=== PATIENT | male | born 1985 | race Caucasian/White ===

== ENCOUNTER 2017-11-02 01:53 | Emergency (ER) | payer SELFPAY ==
[~2017-11-02] VITALS: Ht 185.4 cm; Wt 155.0 kg
[~2017-11-02 01:53] MED LIST: CLON1TAB PO; LEVE500 PO
[2017-11-02 01:57] VITALS: BP 137/92; PULSE 122; RESP 16; TEMP 98.4; O2SAT 98
[2017-11-02] MEDS ORDERED: CARB200T PO (02:03)
--- NOTE | 2017-11-02 03:53 | PD ---
HPI Chief Complaint: Abdominal Pain Time Seen by Provider: 03:52 Travel History International Travel<30 days: No Contact w/Intl Traveler<30days: No Traveled to known affect area: No History of Present Illness HPI The patient is a 32 year old male who presents to the [facility] emergency department with a history of abdominal pain that has been coming and going for 2 months. He was in rehab up until yesterday evening, and they would not let him out to go the ER for evaluation. He reports that he's been in rehabilitation for the last 60 days. The pain is a stabbing pain in the right upper quadrant of the abdomen that radiates around to his back. He reports that Tylenol and Ibuprofen makes it worse. He was in rehab for heroin use. He was discharged from rehab yesterday. He had Hepatitis C and was treated with Harvoni 6 months ago. The pain sometimes causes him to vomit and have diarrhea. He has vomiting and diarrhea every other day. He has had a subjective fever. On review of systems otherwise, the patient denies having any cough or congestion neck pain, chest pain, shortness of breath,urinary symptoms, or neurologic symptoms. [facility] Past Medical History Narrative Medical The patient's past medical history is significant for anxiety, [place] related to cocaine use, heroin use, seizure disorder, Hepatitis C s/p treatment. Hx Anticoagulant Therapy: No Anxiety: Yes Cardiovascular Problems: Yes ([place]) Chemotherapy: No Cerebrovascular Accident: No Diabetes: No Diminished Hearing: No Neurologic: Yes (Dx: Epilepsy age 6 per pt.) Respiratory: Yes ([place]) Immunizations Current: No Myocardial Infarction: Yes Seizures: Yes (Last seizure was 03/05/16 per pt.) Tetanus Vaccination: Unknown Influenza Vaccination: No Past Surgical History Narrative Surgical The patient's past surgical history is significant for cholecystectomy. Cholecystectomy: Yes Social History Alcohol Use: Yes (Once in awhile per pt.) Tobacco Use: No Substance Use: No Allergies-Medications (Allergen,Severity, Reaction): Coded Allergies: haloperidol (Unverified Allergy, Severe, 11/02/17) Per pt. ziprasidone (Unverified Allergy, Severe, 11/02/17) Per pt. phenytoin (Unverified Allergy, Unknown, 11/02/17) Per pt. prochlorperazine (Unverified Allergy, Unknown, 11/02/17) Per pt. Reported Meds & Prescriptions Reported Meds & Active Scripts Active Reported Carbamazepine 200 Mg Tab 200 Mg PO BID Review of Systems Except as stated in HPI: all other systems reviewed are Neg General / Constitutional: No: Fever Eyes: No: Visual changes HENT: No: Headaches Cardiovascular: No: Chest Pain or Discomfort Respiratory: No: Shortness of Breath Gastrointestinal: Positive: Nausea, Vomiting, Diarrhea, Abdominal Pain, Changes in Bowel Habits, Indigestion, No: Hematemesis, Hematochezia, Loss of Appetite Genitourinary: No: Dysuria Musculoskeletal: No: Pain Skin: No Rash Neurologic: No: Weakness Psychiatric: No: Depression Endocrine: No: Polydipsia Hematologic/Lymphatic: No: Easy Bruising Physical Exam Narrative General: The patient is a well-developed well-nourished male in no acute distress Head and Neck exam: Head is normocephalic atraumatic. Eyes: EOMI, pupils are equal round and reactive to light. Nose: Midline septum with pink mucous membranes Mouth: Dentition unremarkable. Moist mucus membranes. Posterior oropharynx is not erythematous. No tonsillar hypertrophy. Uvula midline. Airway patent. Neck: No palpable lymphadenopathy. No nuchal rigidity. No thyromegaly. Cardiovascular: Regular rate and rhythm without murmurs, gallops, or rubs. Lungs: Clear to auscultation bilaterally. No wheezes, rhonchi, or rales. Abdomen: Soft, tenderness reported on palpation of the right upper quadrant of the abdomen, no other tenderness on palpation of the other quadrants of the abdomen. No guarding, rebound, or rigidity. Negative Koehler's sign. No tenderness on palpation of McBurney's point. Extremities: No clubbing, cyanosis, or edema. 2+ pulses in all 4 extremities. No calf tenderness on palpation. Back: No spinous process tenderness to palpation. Bilateral CVA tenderness reported on palpation. Neurologic Exam: Grossly nonfocal. Skin Exam: No rash noted. Intact skin that is warm and dry. Data Data Last Documented VS Vital Signs Date Time Temp Pulse Resp B/P (MAP) Pulse Ox O2 Delivery O2 Flow Rate FiO2 11/02/17 04:56 98.5 68 16 127/63 (84) 98 11/02/17 04:04 Room Air Orders Orders Complete Blood Count With Diff (11/02/17 03:54) Comprehensive Metabolic Panel (11/02/17 03:54) C-Reactive Protein (Crp) (11/02/17 03:54) Lipase (11/02/17 03:54) Urinalysis - C+S If Indicated (11/02/17 03:54) Magnesium (Mg) (11/02/17 03:54) Ct Abd/Pel W Iv Contrast(Rout) (11/02/17 03:54) Iv Access Insert/Monitor (11/02/17 03:54) Ecg Monitoring (11/02/17 03:54) Oximetry (11/02/17 03:54) Iohexol 350 Inj (Omnipaque 350 Inj) (11/02/17 05:44) Ed Discharge Order (11/02/17 06:28) Labs Laboratory Tests Test 11/02/17 04:00 White Blood Count 13.5 TH/MM3 Red Blood Count 5.01 MIL/MM3 Hemoglobin 15.1 GM/DL Hematocrit 44.2 % Mean Corpuscular Volume 88.2 FL Mean Corpuscular Hemoglobin 30.1 PG Mean Corpuscular Hemoglobin Concent 34.1 % Red Cell Distribution Width 13.5 % Platelet Count 259 TH/MM3 Mean Platelet Volume 9.6 FL Neutrophils (%) (Auto) 72.9 % Lymphocytes (%) (Auto) 17.6 % Monocytes (%) (Auto) 8.2 % Eosinophils (%) (Auto) 0.9 % Basophils (%) (Auto) 0.4 % Neutrophils # (Auto) 9.9 TH/MM3 Lymphocytes # (Auto) 2.4 TH/MM3 Monocytes # (Auto) 1.1 TH/MM3 Eosinophils # (Auto) 0.1 TH/MM3 Basophils # (Auto) 0.1 TH/MM3 CBC Comment DIFF FINAL Differential Comment Urine Color YELLOW Urine Turbidity CLEAR Urine pH 7.0 Urine Specific [place] 1.012 Urine Protein NEG mg/dL Urine Glucose (UA) NEG mg/dL Urine Ketones NEG mg/dL Urine Occult Blood NEG Urine Nitrite NEG Urine Bilirubin NEG Urine Urobilinogen LESS THAN 2.0 MG/DL Urine Leukocyte Esterase NEG Urine RBC LESS THAN 1 /hpf Urine WBC 2 /hpf Microscopic Urinalysis Comment CULT NOT INDICATED Blood Urea Nitrogen 13 MG/DL Creatinine 0.91 MG/DL Random Glucose 87 MG/DL Total Protein 7.7 GM/DL Albumin 3.8 GM/DL Calcium Level 8.8 MG/DL Magnesium Level 2.1 MG/DL Alkaline Phosphatase 99 U/L Aspartate Amino Transf (AST/SGOT) 14 U/L Alanine Aminotransferase (ALT/SGPT) 22 U/L Total Bilirubin 0.2 MG/DL Sodium Level 141 MEQ/L Potassium Level 3.8 MEQ/L Chloride Level 108 MEQ/L Carbon Dioxide Level 27.3 MEQ/L Anion Gap 6 MEQ/L Estimat Glomerular Filtration Rate 97 ML/MIN C-Reactive Protein 0.72 MG/DL Lipase 131 U/L [facility] Medical Decision Making Medical Screen Exam Complete: Yes Emergency Medical Condition: Yes Medical Record Reviewed: Yes Interpretation(s) Last Impressions Abdomen/Pelvis CT 11/02/17 0354 Signed Impressions: Service Date/Time: Thursday, November 02, 2017 05:29 - CONCLUSION: 1. Unremarkable bowel gas pattern 2. Status post cholecystectomy. Robbie Price MD Differential Diagnosis Hepatitis, versus choledocholithiasis, versus musculoskeletal strain, versus colitis, versus gastroenteritis, versus kidney stone, versus pyelonephritis Narrative Course During the course of the patients emergency department visit, the patients history, examination, and differential diagnosis were reviewed with the patient. The patient was placed on a cardiac cath tech with oximetry and frequent blood pressure monitoring. The patient had IV access obtained and blood work sent for analysis. A CT scan of the abdomen and pelvis was ordered. The patients laboratory studies were reviewed and remarkable for a white count of 13.5, hemoglobin 15.1, platelets 259 with 72.9 neutrophils. CMP is remarkable for chloride of 108, AST 14, C-reactive protein 0.72, lipase 131, urinalysis is unremarkable. Radiology studies were reviewed and remarkable for a CT scan of the abdomen and pelvis that shows an unremarkable bowel gas pattern, status post cholecystectomy , no other acute abnormality. The patient will be discharged home to follow-up with a primary care physician. The patient reports that he does not have a local physician, therefore he is given the name of the [facility] for follow-up. The patient will be given a prescription for Bentyl for abdominal cramping and Zofran for nausea. The patient is resting comfortably and feels better, is alert and in no distress. The patients results and examination findings were discussed with the patient. The repeat examination is unremarkable and benign. The history, exam, diagnostic testing, and current condition do not suggest any significant pathology to warrant further testing, continued ED treatment, admission, or surgical evaluation at this point. The vital signs have been stable. The patient does not have uncontrollable pain, intractable vomiting, or other significant symptoms. The patient's condition is stable and appropriate for discharge. The patient will pursue further outpatient evaluation with a primary care physician or other designated or consulting physician as indicated in the discharge instructions. The patient expressed understanding and was agreeable with this plan. Diagnosis Primary Impression: Abdominal pain Qualified Codes: R10.11 - Right upper quadrant pain Additional Impression: Nausea, vomiting, and diarrhea Referrals: [facility] 3 days Patient Instructions: Abdominal Pain (ED), Acute Diarrhea (ED), Acute Nausea and Vomiting (ED), General Instructions Med/Other Pt SpecificInfo: Prescription(s) given Scripts Ondansetron Odt (Zofran Odt) 4 Mg Tab 4 MG SL Q6HR Y for Nausea/Vomiting, #7 TAB 0 Refills Prov: Dayami Agee MD 11/02/17 Dicyclomine (Bentyl) 10 Mg Cap 10 MG PO TID Y for CRAMPS, #12 CAP 0 Refills Prov: Dayami Agee MD 11/02/17 Disposition: 01 DISCHARGE HOME Condition: Stable Dayami Agee MD Nov 02, 2017 03:53
[2017-11-02 04:04] VITALS: O2SAT 99
[2017-11-02 04:14] LABS: BLOOD, URINE NEG (NEG); GLUCOSE,URINE NEG (NEG); KETONE, URINE NEG (NEG); NITRITE,URINE NEG (NEG); URINE COLOR YELLOW (YELLW/STRAW)
[2017-11-02 04:19] LABS: COMMENT (UR) CULT NOT INDICATED; CULTURE IF INDICATED CULT NOT INDICATED
[2017-11-02 04:24] LABS: AUTOMATED NEUTROPHIL # 9.9 TH/MM3 (1.8-7.7); BASOPHIL # 0.1 TH/MM3 (0-0.2); BASOPHIL % 0.4 % (0.0-2.0); EOSINOPHIL # 0.1 TH/MM3 (0-0.4); EOSINOPHIL % 0.9 % (0.0-4.0); HEMATOCRIT 44.2 % (39.0-51.0); HEMO FLAGS DIFF FINAL; LYMPH % 17.6 % (9.0-44.0); LYMPHOCYTE # 2.4 TH/MM3 (1.0-4.8); MEAN CELL VOLUME 88.2 FL (80.0-100.0); MEAN CORPUSCULAR HEMOGLOBIN 30.1 PG (27.0-34.0); MEAN CORPUSCULAR HGB CONC 34.1 % (32.0-36.0); MONO % 8.2 % (0.0-8.0); NEUT % 72.9 % (16.0-70.0); PLATELET COUNT 259 TH/MM3 (150-450); RED BLOOD COUNT 5.01 MIL/MM3 (4.50-5.90); RED CELL DISTRIBUTION WIDTH 13.5 % (11.6-17.2); WHITE BLOOD COUNT 13.5 TH/MM3 (4.0-11.0)
[2017-11-02 04:37] LABS: ALT (GPT) 22 U/L (12-78); ANION GAP 6 MEQ/L (5-15); AST (GOT) 14 U/L (15-37); BICARBONATE 27.3 MEQ/L (21.0-32.0); BLOOD UREA NITROGEN 13 MG/DL (7-18); CHLORIDE 108 MEQ/L (98-107); GLOMERULAR FILTRATION RATE 97 ML/MIN (>89); MAGNESIUM 2.1 MG/DL (1.5-2.5); POTASSIUM 3.8 MEQ/L (3.5-5.1); SODIUM (NA) 141 MEQ/L (136-145)
[2017-11-02 04:39] LABS: ALKALINE PHOSPHATASE 99 U/L (45-117); TOTAL BILIRUBIN ADULT 0.2 MG/DL (0.2-1.0)
[2017-11-02 04:56] VITALS: BP 127/63; PULSE 68; RESP 16; TEMP 98.5; O2SAT 98
[2017-11-02] MEDS ORDERED: IOHEXOL 350 MG/ML 10 ML VIAL (for RAD DIAG) IVCONTRAST ONE (05:44)
--- NOTE | 2017-11-02 05:56 | RADRPT ---
EXAM DATE/TIME: 11/02/2017 05:29 [place] COMPARISON: No previous studies available for comparison. INDICATIONS : Abdomen pain. IV CONTRAST: 90 cc Omnipaque 350 (iohexol) IV ORAL CONTRAST: No oral contrast ingested. RADIATION DOSE: 31.57 CTDIvol (mGy) ; Patient body habitus MEDICAL HISTORY : Cardiovascular disease. Seizures. SURGICAL HISTORY : Cholecystectomy. ENCOUNTER: Initial ACUITY: 1 day PAIN SCALE: 5/10 LOCATION: Bilateral abdomen TECHNIQUE: Volumetric scanning of the abdomen and pelvis was performed. Using automated exposure control and ad justment of the mA and/or kV according to patient size, radiation dose was kept as low as reasonably achievable to obtain optimal diagnostic quality images. DICOM format image data is available electro nically for review and comparison. FINDINGS: LOWER LUNGS: The visualized lower lungs are clear. LIVER: Homogeneous density without lesion. There is no dilation of the biliary tree. Status post cholecyste ctomy. SPLEEN: Normal size without lesion. PANCREAS: Within normal limits. KIDNEYS: Normal in size and shape. There is no mass, stone or hydronephrosis. ADRENAL GLANDS: Within normal limits. VASCULAR: There is no aortic aneurysm. BOWEL/MESENTERY: The stomach, small bowel, and colon demonstrate no acute abnormality. There is no free intraperitone al air or fluid. ABDOMINAL WALL: Within normal limits. RETROPERITONEUM: There is no lymphadenopathy. BLADDER: No wall thickening or mass. REPRODUCTIVE: Within normal limits. INGUINAL: There is no lymphadenopathy or hernia. MUSCULOSKELETAL: Within normal limits for patient age. CONCLUSION: 1. Unremarkable bowel gas pattern 2. Status post cholecystectomy. Robbie Price MD on November 02, 2017 at 5:53 Board Certified Radiologist. This report was verified electronically.
[2017-11-02] MEDS ORDERED: DICY10 PO (06:35)
[2017-11-02] MEDS ORDERED: ZOFR4TAB3 SL (06:35)
== END 2017-11-02 06:43 | disposition home or self-care (01) ==
LOC: NEPC 01:53
DX: R10.11 Right upper quadrant pain (principal); R11.2 Nausea with vomiting, unspecified; R19.7 Diarrhea, unspecified; F41.9 Anxiety disorder, unspecified; G40.909 Epilepsy, unspecified, not intractable, without status epilepticus; I25.2 Old myocardial infarction; Z79.899 Other long term (current) drug therapy
CPT/HCPCS: 74177; 80053; 81001; 83690; 83735; 85025; 86140; 99285; Q9967

== ENCOUNTER 2017-11-20 09:25 | Emergency (ER) | payer SELFPAY ==
[~2017-11-20] VITALS: Ht 185.4 cm; Wt 154.0 kg
[~2017-11-20 09:25] MED LIST changes: +CARB200T PO; -CLON1TAB PO; +DICY10 PO; -LEVE500 PO; +ZOFR4TAB3 SL
[2017-11-20 09:27] VITALS: BP 171/105; PULSE 103; RESP 16; TEMP 98.4; O2SAT 96
--- NOTE | 2017-11-20 10:25 | PD ---
HPI Chief Complaint: Oral / Dental Pain or Problem Time Seen by Provider: 10:12 Travel History International Travel<30 days: No Contact w/Intl Traveler<30days: No Traveled to known affect area: No History of Present Illness HPI 32-year-old male presents to emergency department complaining of left lower tooth and jaw pain since yesterday. Patient states that the pain radiates to his jaw and neck and described as throbbing with occasional sharp sensation. Patient says that the pain is moderate to severe. Patient also states that he is also had increased fatigue since the onset. Patient denies fever or chills. States that the pain worsens with palpation of the jaw and neck. States he has been taking Tylenol and Motrin with some relief of his pain. Patient has a history of epilepsy but does not take medication for this. States he was previously taking Tegretol but states that he did not like the feeling it gave him. Patient then states that he has been evaluated for TMJ and treated but this has not helped his pain. Patient has not seen his dentist regarding this pain. PFSH Past Medical History Hx Anticoagulant Therapy: No Anxiety: Yes Cardiovascular Problems: Yes ([place]) Chemotherapy: No Cerebrovascular Accident: No Diabetes: No Diminished Hearing: No Neurologic: Yes (Dx: Epilepsy age 6 per pt.) Respiratory: Yes ([place]) Immunizations Current: No Myocardial Infarction: Yes Seizures: Yes (Last seizure was 03/05/16 per pt.) Past Surgical History Cholecystectomy: Yes Social History Alcohol Use: Yes (Once in awhile per pt.) Tobacco Use: No Substance Use: No Allergies-Medications (Allergen,Severity, Reaction): Coded Allergies: haloperidol (Unverified Allergy, Severe, 11/20/17) Per pt. ziprasidone (Unverified Allergy, Severe, 11/20/17) Per pt. phenytoin (Unverified Allergy, Unknown, 11/20/17) Per pt. prochlorperazine (Unverified Allergy, Unknown, 11/20/17) Per pt. Reported Meds & Prescriptions Reported Meds & Active Scripts Active Amoxicillin 500 Mg Cap 500 Mg PO TID 10 Days Reported Carbamazepine 200 Mg Tab 200 Mg PO BID Review of Systems Except as stated in HPI: all other systems reviewed are Neg Physical Exam Narrative GENERAL: Well-developed well-nourished distress SKIN: Focused skin assessment warm/dry. HEAD: Atraumatic. Normocephalic. EYES: Pupils equal and round. No scleral icterus. No injection or drainage. ENT: No nasal bleeding or discharge. Mucous membranes pink and moist. Bilateral tympanic membranes-noninjected, non-bulging. Intact TTP to posterior aspect of left jaw buccal aspect.No clicking or pops. NECK: Trachea midline. No JVD. Tenderness palpation of the left anterior cervical lymph nodes. CARDIOVASCULAR: Regular rate and rhythm. No murmur appreciated. RESPIRATORY: No accessory muscle use. Clear to auscultation. Breath sounds equal bilaterally. MUSCULOSKELETAL: No obvious deformities. No clubbing. No cyanosis. No edema. NEUROLOGICAL: Awake and alert. No obvious cranial nerve deficits. Motor grossly within normal limits. Normal speech. PSYCHIATRIC: Appropriate mood and affect; insight and judgment normal. Data Data Last Documented VS Vital Signs Date Time Temp Pulse Resp B/P (MAP) Pulse Ox O2 Delivery O2 Flow Rate FiO2 11/20/17 10:45 99 11/20/17 09:27 98.4 103 16 Orders Orders Ed Discharge Order (11/20/17 10:27) [facility] Medical Decision Making Medical Screen Exam Complete: Yes Emergency Medical Condition: Yes Differential Diagnosis TMJ, trigeminal neuralgia, dental infection Narrative Course 32-year-old male presents to emergency department complaining of left lower tooth and jaw pain since yesterday. Patient states that the pain radiates to his jaw and neck and described as throbbing with occasional sharp sensation. Patient says that the pain is moderate to severe. Patient also states that he is also had increased fatigue since the onset. Patient denies fever or chills. States that the pain worsens with palpation of the jaw and neck. States he has been taking Tylenol and Motrin with some relief of his pain. Patient has a history of epilepsy but does not take medication for this. States he was previously taking Tegretol but states that he did not like the feeling it gave him. Patient then states that he has been evaluated for TMJ and treated but this has not helped his pain. Vital signs stable Physical exam findings consistent with TMJ versus dental infection. No clicking or popping of the jaw. Tender palpation without fluctuance of the left lower gingiva Patient initially stated that he had not seen a physician or specialist regarding this problem. After further questioning and evaluation patient states that he was preceded diagnosed with TMJ for this problem. He was unable tell me if he received medication for his pain. He states that he feels this is a dental infection because whenever he has infection he feels the same way. Patient will be discharged with amoxicillin. Advised to follow-up with a dentist and as a health for further treatment and evaluation. Advised patient to follow-up with neurologist for his epilepsy. Return to the emergency department for worsening or persistent symptoms. Diagnosis Primary Impression: Dental infection Referrals: [facility] Dentist Patient Instructions: Dental Abscess (ED), General Instructions Additional Instructions: Follow up with your primary care physician within 2-3 days. If your symptoms persist or worsen, return to the emergency department. Scripts Amoxicillin (Amoxicillin) 500 Mg Cap 500 MG PO TID for Infection for 10 Days, CAP 0 Refills Prov: Page Jon MD 11/20/17 Disposition: 01 DISCHARGE HOME Condition: Stable Annalisa Adler Nov 20, 2017 10:25
[2017-11-20] MEDS ORDERED: AMOX500C PO (10:26)
== END 2017-11-20 10:45 | disposition home or self-care (01) ==
LOC: NEPD 09:25
DX: K04.7 Periapical abscess without sinus (principal); R53.83 Other fatigue; G40.909 Epilepsy, unspecified, not intractable, without status epilepticus; F41.9 Anxiety disorder, unspecified; I25.2 Old myocardial infarction; Z79.899 Other long term (current) drug therapy; Z88.8 Allergy status to other drugs, medicaments and biological substances
CPT/HCPCS: 99283

== ENCOUNTER 2017-12-19 07:32 | Emergency (ER) | payer SELFPAY ==
[2017-12-19] MEDS: IBUPROFEN 800 MG TAB PO (07:58)
[2017-12-19] MEDS: ACETAMINOPHEN 325 MG TAB PO (07:59)
[2017-12-19] MEDS: PENICILLIN V POTASSIUM 500 MG TAB PO (07:59)
== END 2017-12-19 08:15 | disposition home or self-care (01) ==
LOC: NEPD 07:32
DX: K04.7 Periapical abscess without sinus (principal); F41.9 Anxiety disorder, unspecified; G40.909 Epilepsy, unspecified, not intractable, without status epilepticus; I25.2 Old myocardial infarction; Z88.8 Allergy status to other drugs, medicaments and biological substances
CPT/HCPCS: 99283

== ENCOUNTER 2017-12-20 21:43 | Emergency (ER) | payer SELFPAY ==
[2017-12-21] MEDS: CLINDAMYCIN PHOS 600 MG/4 ML VIAL IM (01:20)
[2017-12-21] MEDS: ONDANSETRON ODT 4 MG TAB PO (01:20)
== END 2017-12-21 01:29 | disposition home or self-care (01) ==
LOC: NEPD 21:43
DX: K04.7 Periapical abscess without sinus (principal)
CPT/HCPCS: 99283

== ENCOUNTER 2018-02-02 02:01 | Emergency (ER) | payer SELFPAY ==
[~2018-02-02] VITALS: Ht 185.4 cm; Wt 159.0 kg
[~2018-02-02 02:01] MED LIST changes: -CARB200T PO; -DICY10 PO; +IBUP1TAB7 PO; +MAPA500T13 PO; +PENI500T PO
[2018-02-02 02:15] VITALS: BP 134/76; PULSE 90; RESP 18; TEMP 98.8; O2SAT 98
--- NOTE | 2018-02-02 03:41 | PD ---
HPI Chief Complaint: Numbness/Tingling Time Seen by Provider: 03:19 Travel History International Travel<30 days: No Contact w/Intl Traveler<30days: No Traveled to known affect area: No History of Present Illness HPI The patient is a 32 year old male who presents to the [facility] emergency department with a history of right hand numbness and pain that he reports began 2 weeks ago. He reports over 2 days at the pain seemed to marked up his right arm. He reports that since then it has been numb and painful. He reports that it is so painful at times a it causes him to have a sharp chest pain and feels short of breath. The patient reports that this evening while working he developed the same kind of numbness and pain in bilateral feet. It caused him to fall to his knees at work. He denies injuring himself. He reports that he has also had a headache for the last 2 days that is like a band around the top of his head. When asked if he is taking anything for pain he reports that he is taking heroin. He reports that he snorts heroine recreationally. The patient also reports using cocaine. The patient reports a prior history of myocardial infarction induced by drug use approximately 2 years ago. He denies having any chest pain or shortness of breath currently. He denies having any lower extremity edema, calf pain, or erythema. He denies having any known recent fevers, cough or congestion. He denies having any abdominal pain. He denies having any nausea or vomiting. He reports that over the last 3 days he has been having diarrhea approximately every 2-3 hours. He reports that his stool is yellow in color. Otherwise on review of systems he denies having urinary symptoms, one-sided weakness, slurred speech, facial droop, or difficulty with word finding ability. 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 Hx Anticoagulant Therapy: No Anxiety: Yes Cardiovascular Problems: Yes ([place] DRUG RELATED) Chemotherapy: No Cerebrovascular Accident: No Diabetes: No Diminished Hearing: No Neurologic: Yes (Dx: Epilepsy age 6 per pt.) Respiratory: Yes Immunizations Current: Yes Myocardial Infarction: Yes (COCAINE RELATED) Seizures: Yes (Last seizure was12/15/17) Past Surgical History Narrative Surgical The patient's past surgical history is significant for cholecystectomy. Cholecystectomy: Yes Other Surgery: Yes (METAL REMOVED FROM BRAIN) Social History Alcohol Use: Yes (OCC) Tobacco Use: Yes (1PPD) Substance Use: Yes (HEROIN 02/01/18, cocaine) Allergies-Medications (Allergen,Severity, Reaction): Coded Allergies: haloperidol (Unverified Allergy, Severe, 02/02/18) Per pt. ziprasidone (Unverified Allergy, Severe, 02/02/18) Per pt. phenytoin (Unverified Allergy, Unknown, 02/02/18) Per pt. prochlorperazine (Unverified Allergy, Unknown, 02/02/18) Per pt. Reported Meds & Prescriptions Reported Meds & Active Scripts Active Zofran Odt (Ondansetron Odt) 4 Mg Tab 4 Mg SL Q6HR PRN Mapap Extra Strength (Acetaminophen) 500 Mg Tab 1,000 Mg PO Q6HR PRN Ibuprofen 800 Mg Tab 800 Mg PO Q8H PRN Penicillin V Potassium 500 Mg Tab 500 Mg PO Q6H 10 Days Review of Systems Except as stated in HPI: all other systems reviewed are Neg General / Constitutional: No: Fever Eyes: No: Visual changes HENT: Positive: Headaches, Neck Pain, No: Neck Stiffness Cardiovascular: Positive: Chest Pain or Discomfort Respiratory: Positive: Shortness of Breath Gastrointestinal: Positive: Diarrhea, Changes in Bowel Habits, No: Nausea, Vomiting, Abdominal Pain, Indigestion, Loss of Appetite Genitourinary: No: Dysuria Musculoskeletal: No: Pain Skin: No Rash Neurologic: Positive: Paresthesia, Sensory Disturbance, No: Weakness, Focal Abnormalities, Change in Mentation, Slurred Speech Psychiatric: No: Depression Endocrine: No: Polydipsia Hematologic/Lymphatic: No: Easy Bruising Physical Exam Narrative General: The patient is a well-developed well-nourished male in no acute distress. Head and Neck exam: Head is normocephalic atraumatic. Eyes: EOMI, pupils are equal round and reactive to light. Nose: Midline septum with pink mucous membranes Mouth: Dentition unremarkable. Moist mucus membranes. Posterior oropharynx is not erythematous. No tonsillar hypertrophy. Uvula midline. Airway patent. Neck: No palpable lymphadenopathy. No nuchal rigidity. No thyromegaly. Cardiovascular: Regular rate and rhythm without murmurs, gallops, or rubs. No pulse deficit to the extremities on simultaneous auscultation and palpation of his radial artery. Lungs: Clear to auscultation bilaterally. No wheezes, rhonchi, or rales. Abdomen: Soft, without tenderness to palpation in all 4 quadrants of the abdomen. No guarding, rebound, or rigidity. Normal bowel sounds are audible. No tenderness on palpation of McBurney's point. Negative Koehler sign. Extremities: No clubbing, cyanosis, or edema. 2+ pulses in all 4 extremities. No calf tenderness on palpation. Back: No spinous process tenderness to palpation. No costovertebral angle tenderness to palpation. Neurologic Exam: Cranial nerves 2-12 were intact on exam. Strength is 5/5 in all 4 extremities. No discernible sensory deficits noted, however he reports having tingling/ burning sensations to his right hand, bilateral feet. Skin Exam: No rash noted. Intact skin that is warm and dry. Data Data Last Documented VS Vital Signs Date Time Temp Pulse Resp B/P (MAP) Pulse Ox O2 Delivery O2 Flow Rate FiO2 02/02/18 03:55 99 02/02/18 02:15 98.8 90 18 134/76 (95) Orders Orders Electrocardiogram (02/02/18 ) Electrocardiogram (02/02/18 03:31) Complete Blood Count With Diff (02/02/18 03:31) Comprehensive Metabolic Panel (02/02/18 03:31) Creatine Kinase (Cpk) (02/02/18 03:31) Ckmb (Isoenzyme) Profile (02/02/18 03:31) Troponin I (02/02/18 03:31) B-Type Natriuretic Peptide (02/02/18 03:31) Prothrombin Time / Inr (Pt) (02/02/18 03:31) Act Partial Throm Time (Ptt) (02/02/18 03:31) Lipase (02/02/18 03:31) Urinalysis - C+S If Indicated (02/02/18 03:31) Westergren Sedimentation Rate (02/02/18 03:31) Magnesium (Mg) (02/02/18 03:31) Thyroid Stimulating Hormone (02/02/18 03:31) Chest, Single Ap (02/02/18 03:31) Ct Brain W/O Iv Contrast(Rout) (02/02/18 03:31) Iv Access Insert/Monitor (02/02/18 03:31) Ecg Monitoring (02/02/18 03:31) Oximetry (02/02/18 03:31) Ct Cerv Spine W/O Contrast (02/02/18 ) Sodium Chlor 0.9% 1000 Ml Inj (Ns 1000 M (02/02/18 03:45) Aspirin Chew (Aspirin Chew) (02/02/18 03:45) CKMB (02/02/18 03:52) CKMB% (02/02/18 03:52) Labs Laboratory Tests Test 02/02/18 03:52 White Blood Count 9.6 TH/MM3 Red Blood Count 4.67 MIL/MM3 Hemoglobin 14.0 GM/DL Hematocrit 40.4 % Mean Corpuscular Volume 86.5 FL Mean Corpuscular Hemoglobin 29.9 PG Mean Corpuscular Hemoglobin Concent 34.6 % Red Cell Distribution Width 13.4 % Platelet Count 230 TH/MM3 Mean Platelet Volume 8.6 FL Neutrophils (%) (Auto) 60.2 % Lymphocytes (%) (Auto) 27.0 % Monocytes (%) (Auto) 9.3 % Eosinophils (%) (Auto) 3.0 % Basophils (%) (Auto) 0.5 % Neutrophils # (Auto) 5.8 TH/MM3 Lymphocytes # (Auto) 2.6 TH/MM3 Monocytes # (Auto) 0.9 TH/MM3 Eosinophils # (Auto) 0.3 TH/MM3 Basophils # (Auto) 0.0 TH/MM3 CBC Comment DIFF FINAL Differential Comment Erythrocyte Sedimentation Rate 5 mm/hr Prothrombin Time 10.7 SEC Prothromb Time International Ratio 1.1 RATIO Activated Partial Thromboplast Time 29.4 SEC Blood Urea Nitrogen 15 MG/DL Creatinine 0.80 MG/DL Random Glucose 92 MG/DL Total Protein 6.8 GM/DL Albumin 3.4 GM/DL Calcium Level 8.3 MG/DL Magnesium Level 2.0 MG/DL Alkaline Phosphatase 81 U/L Aspartate Amino Transf (AST/SGOT) 15 U/L Alanine Aminotransferase (ALT/SGPT) 22 U/L Total Bilirubin 0.5 MG/DL Sodium Level 139 MEQ/L Potassium Level 3.5 MEQ/L Chloride Level 107 MEQ/L Carbon Dioxide Level 23.8 MEQ/L Anion Gap 8 MEQ/L Estimat Glomerular Filtration Rate 113 ML/MIN Total Creatine Kinase 115 U/L Creatine Kinase MB 1.6 NG/ML Troponin I LESS THAN 0.02 NG/ML B-Type Natriuretic Peptide 7 PG/ML Lipase 103 U/L Thyroid Stimulating Hormone 3rd Gen 0.713 uIU/ML MDM Medical Decision Making Medical Screen Exam Complete: Yes Emergency Medical Condition: Yes Medical Record Reviewed: Yes Differential Diagnosis Radiculopathy, versus peripheral neuropathy, versus electrolyte derangements, versus malingering, versus somatization, versus drug-seeking, versus intracranial abnormal, versus endocarditis Narrative Course During the course of the patient's emergency department visit, the patient's history, examination, and differential diagnosis were reviewed with the patient. The patient was placed on a cardiac rehab nurse with oximetry and frequent blood pressure monitoring. The patient had IV access obtained and blood work sent for analysis. The patient was initially provided normal saline 1 L IV fluid bolus, aspirin 324 mg p.o. 1. The patient's laboratory studies were reviewed and remarkable for a white count of 9.6, hemoglobin 14, platelets 230 with monocytes 9.3, sedimentation rate is 5 decreasing the likelihood of infectious process or endocarditis. CMP is remarkable for calcium of 8.3, magnesium 2, cardiac enzymes within normal limits , BNP is 7, lipase 103, TSH 0.713. PT 10.7, INR 1.1, PTT 29.4 Radiology studies were reviewed and remarkable for chest x-ray that shows no acute cardiopulmonary abnormality, CT scan of the brain showed no acute abnormality. CT scan of the C-spine showed no acute abnormality. The patient was instructed regarding the importance of avoiding cocaine and heroin use. Specifically cocaine has in the past because myocardial infarction in this patient, therefore I recommended avoidance of this drug. The patient is given information regarding the [facility] for detoxification when he is interested. The patient is given the information regarding the [facility] for follow-up regarding his paresthesias. The patient is resting comfortably and feels better, is alert and in no distress. The patient's results and examination findings were discussed with the patient. The repeat examination is unremarkable and benign. The history, exam, diagnostic testing, and current condition do not suggest any significant pathology to warrant further testing, continued ED treatment, admission, or surgical evaluation at this point. The vital signs have been stable. The patient does not have uncontrollable pain, intractable vomiting, or other significant symptoms. The patient's condition is stable and appropriate for discharge. The patient will pursue further outpatient evaluation with a primary care physician or other designated or consulting physician as indicated in the discharge instructions. The patient expressed understanding and was agreeable with this plan. Diagnosis Primary Impression: Paresthesia and pain of right extremity Additional Impression: Paresthesia of both feet Referrals: [facility] 2 days [facility] as needed for detox Patient Instructions: General Instructions, Paresthesia (ED) Additional Instructions: Please avoid cocaine and heroin. Med/Other Pt SpecificInfo: No Meds Exist/No RX given Disposition: 01 DISCHARGE HOME Condition: Stable Dayami Agee MD Feb 02, 2018 03:41
[2018-02-02] MEDS ORDERED: ASPIRIN 81 MG CHEW TAB CHEW ONE (03:45)
[2018-02-02] MEDS ORDERED: SODIUM CHLOR 0.9% 1000 ML INJ 1,000 ML IV ONE (03:45)
[2018-02-02 03:55] VITALS: O2SAT 99
[2018-02-02 04:02] LABS: AUTOMATED NEUTROPHIL # 5.8 TH/MM3 (1.8-7.7); BASOPHIL % 0.5 % (0.0-2.0); EOSINOPHIL # 0.3 TH/MM3 (0-0.4); HEMATOCRIT 40.4 % (39.0-51.0); LYMPHOCYTE # 2.6 TH/MM3 (1.0-4.8); MEAN CELL VOLUME 86.5 FL (80.0-100.0); MEAN CORPUSCULAR HEMOGLOBIN 29.9 PG (27.0-34.0); MEAN CORPUSCULAR HGB CONC 34.6 % (32.0-36.0); MEAN PLATELET VOLUME 8.6 FL (7.0-11.0); MONO % 9.3 % (0.0-8.0); MONOCYTE # 0.9 TH/MM3 (0-0.9); NEUT % 60.2 % (16.0-70.0); PLATELET COUNT 230 TH/MM3 (150-450); RED BLOOD COUNT 4.67 MIL/MM3 (4.50-5.90); RED CELL DISTRIBUTION WIDTH 13.4 % (11.6-17.2); WHITE BLOOD COUNT 9.6 TH/MM3 (4.0-11.0)
--- NOTE | 2018-02-02 04:11 | RADRPT ---
EXAM DATE/TIME: 02/02/2018 03:37 [facility] COMPARISON: No previous studies available for comparison. INDICATIONS : Cough. MEDICAL HISTORY : Cardiovascular disease. SURGICAL HISTORY : None. ENCOUNTER: Initial ACUITY: 1 day PAIN SCORE: 0/10 LOCATION: Bilateral chest FINDINGS: Portable AP view of the chest demonstrates a normal-sized cardiac silhouette. No effusion, consolidat ion, or pneumothorax is visualized. The bones and soft tissues demonstrate no acute abnormality. CONCLUSION: No acute cardiopulmonary abnormality is identified. Amarjit Vogel MD on February 02, 2018 at 4:09 Board Certified Radiologist. This report was verified electronically.
[2018-02-02 04:24] LABS: ALBUMIN 3.4 GM/DL (3.4-5.0); ALT (GPT) 22 U/L (12-78); AST (GOT) 15 U/L (15-37); BICARBONATE 23.8 MEQ/L (21.0-32.0); BLOOD UREA NITROGEN 15 MG/DL (7-18); CALCIUM 8.3 MG/DL (8.5-10.1); CHLORIDE 107 MEQ/L (98-107); GLOMERULAR FILTRATION RATE 113 ML/MIN (>89); GLUCOSE,RANDOM 92 MG/DL (74-106); SODIUM (NA) 139 MEQ/L (136-145)
[2018-02-02 04:25] LABS: INTERNATIONAL NORMALIZED RATIO 1.1 RATIO; PROTHROMBIN TIME - PATIENT 10.7 SEC (9.8-11.6)
[2018-02-02 04:34] LABS: ALKALINE PHOSPHATASE 81 U/L (45-117); TOTAL BILIRUBIN ADULT 0.5 MG/DL (0.2-1.0); TOTAL PROTEIN 6.8 GM/DL (6.4-8.2); TROPONIN I LESS THAN 0.02 NG/ML (0.02-0.05)
--- NOTE | 2018-02-02 04:50 | RADRPT ---
EXAM DATE/TIME: 02/02/2018 04:02 [facility] COMPARISON: CT BRAIN W/O CONTRAST, March 07, 2016, 19:07. INDICATIONS : Cephalgia and right arm numbness. RADIATION DOSE: 56.35 CTDIvol (mGy) MEDICAL HISTORY : Seizures. Myocardial infarction. SURGICAL HISTORY : None. ENCOUNTER: Initial ACUITY: 1 day PAIN SCALE: 4/10 LOCATION: cranial TECHNIQUE: Multiple contiguous axial images were obtained of the head. Using automated exposure control and adj ustment of the mA and/or kV according to patient size, radiation dose was kept as low as reasonably a chievable to obtain optimal diagnostic quality images. DICOM format image data is available electro nically for review and comparison. FINDINGS: CEREBRUM: The ventricles are normal for age. No evidence of midline shift, mass lesion, hemorrhage or acute in farction. No extra-axial fluid collections are seen. POSTERIOR FOSSA: The cerebellum and brainstem are intact. The 4th ventricle is midline. The cerebellopontine angle i s unremarkable. EXTRACRANIAL: The visualized portion of the orbits is intact. SKULL: The calvaria is intact. No evidence of skull fracture. CONCLUSION: No acute intracranial abnormality is identified. Amarjit Vogel MD on February 02, 2018 at 4:46 Board Certified Radiologist. This report was verified electronically.
--- NOTE | 2018-02-02 04:52 | RADRPT ---
EXAM DATE/TIME: 02/02/2018 04:02 [facility] COMPARISON: No previous studies available for comparison. INDICATIONS : Neck pain and right arm numbness. RADIATION DOSE: 32.64 CTDIvol (mGy) ; Patient body habitus MEDICAL HISTORY : Seizures. SURGICAL HISTORY : None. ENCOUNTER: Initial ACUITY: 1 day PAIN SCALE: 6/10 LOCATION: neck TECHNIQUE: Volumetric scanning of the cervical spine was performed. Multiplanar reconstructions in the sagittal, coronal and oblique axial planes were performed. Using automated exposure control and adjustment o f the mA and/or kV according to patient size, radiation dose was kept as low as reasonably achievable to obtain optimal diagnostic quality images. DICOM format image data is available electronically f or review and comparison. FINDINGS: There is normal sagittal spine alignment of the cervical spine. No anterolisthesis or retrolisthesis is present. The atlantoaxial relationship is within normal limits. There is no prevertebral soft tiss ue swelling present. No fracture or dislocation is identified. No disc herniation is visualized in th e upper cervical spine. The visualized portions of the posterior fossa, paraspinous soft tissues, and upper lung zones demons trate no acute abnormality. CONCLUSION: No acute cervical spine abnormality is identified. Amarjit Vogel MD on February 02, 2018 at 4:48 Board Certified Radiologist. This report was verified electronically.
--- NOTE | 2018-02-02 10:47 | EKG ---
Date Performed: 02/02/2018 Time Performed: 02:25:23 PTAGE: 32 years EKG: Sinus rhythm BORDERLINE ECG NO PREVIOUS TRACING DOCTOR: Rustam Corea Interpretating Date/Time 02/02/2018 10:47:40
== END 2018-02-02 07:09 | disposition home or self-care (01) ==
LOC: NEPC 02:01
DX: R20.2 Paresthesia of skin (principal); M79.601 Pain in right arm; R07.9 Chest pain, unspecified; R51 Headache; M79.672 Pain in left foot; M79.671 Pain in right foot; R94.31 Abnormal electrocardiogram [ECG] [EKG]; I25.2 Old myocardial infarction; B19.20 Unspecified viral hepatitis C without hepatic coma; G40.909 Epilepsy, unspecified, not intractable, without status epilepticus; F41.9 Anxiety disorder, unspecified; F17.210 Nicotine dependence, cigarettes, uncomplicated; F14.90 Cocaine use, unspecified, uncomplicated
CPT/HCPCS: 70450; 71045; 72125; 80053; 82550; 82552; 83690; 83735; 83880; 84443; 84484; 85025; 85610; 85652; 85730; 93005; 99285; J7030